=== PATIENT | female | born 1945 | race Asian ===

== ENCOUNTER 2018-03-24 19:03 | Emergency (ER) | payer OTHER ==
[~2018-03-24] VITALS: Ht 167.6 cm; Wt 54.4 kg
[2018-03-24 19:11] VITALS: Ht 167.6 cm; Wt 54.4 kg
[2018-03-24 22:55] VITALS: BP 162/86
== END 2018-03-24 22:55 | disposition home or self-care (01) ==
LOC: ED 19:03
DX: J02.9 Acute pharyngitis, unspecified (principal); G20 Parkinson's disease; Z88.2 Allergy status to sulfonamides

== ENCOUNTER 2018-12-25 14:51 | Emergency (ER) | payer OTHER ==
[~2018-12-25] VITALS: Ht 167.6 cm; Wt 58.5 kg
[2018-12-25 15:02] VITALS: Ht 167.6 cm; Wt 58.5 kg
[2018-12-25 17:28] LABS: CALCIUM 8.9 mg/dL (8.5-10.1); CARBON DIOXIDE 31.1 mmol/L (21-32); CHLORIDE SERUM 107 mmol/L (98-107); CREATININE SERUM 0.8 mg/dL (0.6-1.0); GLUCOSE SERUM 114 mg/dL (74-106); POTASSIUM SERUM 4.4 mmol/L (3.5-5.1); SODIUM SERUM 143 mmol/L (136-145)
[2018-12-25 17:30] VITALS: BP 142/78
[2018-12-25 17:32] LABS: URIC ACID 4.2 mg/dL (2.6-6.0)
[2018-12-25 17:42] LABS: C REACTIVE PROTEIN < 0.2 mg/dL (<=0.9)
== END 2018-12-25 18:14 | disposition home or self-care (01) ==
LOC: ED 14:51
PROVIDERS: Emergency Medicine
DX: M25.562 Pain in left knee (principal); Z88.2 Allergy status to sulfonamides; Z90.89 Acquired absence of other organs; Z98.890 Other specified postprocedural states
CPT/HCPCS: J1885; Q0092